=== PATIENT | female | born 1980 | race Caucasian/White ===

== ENCOUNTER 2020-12-22 11:09 | Observation (INO) ==
[2020-12-22 11:42] LABS: Bilirubin,Urine Negative (Negative); Blood,Urine Small (Negative); Clarity,Urine Turbid (Clear); Color,Urine Yellow (Yellow); Glucose,Urine (UA) Normal (Normal); Hyaline Casts,Urine Few per lpf (None Seen); Ketones,Urine 10 mg/dL (Negative); Leukocyte Esterase,Urine Small (Negative); Mucus,Urine Few per lpf (None-Few); Nitrite,Urine Negative (Negative); Protein,Urine 30 mg/dL (Neg-Trace); RBC,Urine 0-3 per hpf (0-3); Specific Gravity,Urine 1.021 (1.010-1.025); Squamous Epithelial Cell,Urine Moderate per hpf (None-Few); Urobilinogen,Urine Normal (Normal)
[2020-12-22 12:07] LABS: Basophils % 0.2 %; Eosinophils % 0.2 %; Hematocrit 39.5 % (35.3-44.9); Hemoglobin 13.9 g/dL (11.5-15.4); Immature Granulocytes % 0.4 % (0-4); Lymphocytes # 4.1 K/mcL (0.6-4.6); Lymphocytes % 36.2 %; Mean Corpuscular HGB Conc 35.2 g/dL (31.6-35.5); Mean Corpuscular Hemoglobin 32.5 pg (28.0-33.3); Mean Corpuscular Volume 92.3 fL (83.0-100.0); Mean Platelet Volume 11.3 fL (9.4-12.4); Monocytes # 0.7 K/mcL (0.0-1.3); Monocytes % 5.8 %; Neutrophils # 6.6 K/mcL (1.6-8.9); Platelet Count 242 K/mcL (140-400); Red Blood Count 4.28 M/mcL (3.82-4.97); Segmented Neutrophils % 57.2 %; White Blood Count 11.5 K/mcL (4.3-11.1)
[2020-12-22 12:20] LABS: Estimated Average Glucose 103 mg/dl; Hemoglobin A1C 5.2 %
[2020-12-22 12:40] LABS: Acetaminophen < 10 mcg/mL (10-20); BUN/Creatinine Ratio 19 (6-26); Blood Urea Nitrogen 15 mg/dL (6-20); Carbon Dioxide 27 mEq/L (23-29); Chloride 97 mEq/L (98-107); Chol/HDL Ratio 3.6 (0-4.9); Cholesterol 144 mg/dL (< 200); Ethanol < 10 mg/dL (Less than 10); Glucose 115 mg/dL (70-105); HDL Cholesterol 40 mg/dL (40-59); LDL Cholesterol,Calculated 81 mg/dL (< 100); Osmolality,Calculated 290 (280-300); Potassium 2.4 mEq/L (3.5-5.1); Salicylate < 2.5 mg/dL (15.0-30.0); Sodium 139 mEq/L (136-145); Triglycerides 115 mg/dL (< 150); eGFR For African Americans > 60 (> 60); eGFR For Non-African Americans > 60 (> 60)
[2020-12-22 12:43] LABS: Amphetamine Screen,Urine Negative ng/mL (Cutoff=1000); Barbiturate Screen,Urine Negative ng/mL (Cutoff=200); Benzodiazepines Screen,Urine Negative ng/mL (Cutoff=200); Cannabinoid Screen,Urine Positive ng/mL (Cutoff = 50); Cocaine Screen,Urine Negative ng/mL (Cutoff= 300); Opiate Screen,Urine Negative ng/mL (Cutoff=300); Phencyclidine Screen,Urine Negative ng/mL (Cutoff=25)
[2020-12-22] MEDS ORDERED: Naloxone 0.4 MG/ML INJ IVP PRN (15:00)
[2020-12-22 17:23] LABS: Magnesium 1.7 mg/dL (1.6-2.6)
[2020-12-23] MEDS ORDERED: Potassium Chloride Elixir 20 MEQ/15 ML UDC PO ONE (02:56)
[2020-12-23 07:51] LABS: Basophils % 0.1 %; Eosinophils % 0.5 %; Hematocrit 37.3 % (35.3-44.9); Hemoglobin 12.6 g/dL (11.5-15.4); Immature Granulocytes % 0.4 % (0-4); Lymphocytes # 2.9 K/mcL (0.6-4.6); Lymphocytes % 34.8 %; Mean Corpuscular HGB Conc 33.8 g/dL (31.6-35.5); Mean Corpuscular Volume 94.7 fL (83.0-100.0); Mean Platelet Volume 11.4 fL (9.4-12.4); Monocytes # 0.6 K/mcL (0.0-1.3); Monocytes % 6.7 %; Neutrophils # 4.8 K/mcL (1.6-8.9); Platelet Count 196 K/mcL (140-400); Red Blood Count 3.94 M/mcL (3.82-4.97); Red Cell Distribution Width 12.3 % (11.5-14.5); Segmented Neutrophils % 57.5 %; White Blood Count 8.3 K/mcL (4.3-11.1)
[2020-12-23 08:18] LABS: BUN/Creatinine Ratio 13 (6-26); Blood Urea Nitrogen 9 mg/dL (6-20); Calcium 9.6 mg/dL (8.6-10.3); Carbon Dioxide 27 mEq/L (23-29); Chloride 108 mEq/L (98-107); Glucose 112 mg/dL (70-105); Osmolality,Calculated 291 (280-300); Potassium 4.3 mEq/L (3.5-5.1); Sodium 141 mEq/L (136-145); eGFR For African Americans > 60 (> 60); eGFR For Non-African Americans > 60 (> 60)
[2020-12-23 15:01] VITALS: BP 112/70
== END 2020-12-23 18:09 | disposition other institution (70) ==
LOC: EMEROOARM 11:09 → 3BNU 11:09 → SUATTDRO 14:43 → 3BNU 15:16
PROVIDERS: ADMIT Internal Medicine; ATTEND Nurse Practitioner

== ENCOUNTER 2020-12-23 17:55 | Inpatient (IN) ==
[2020-12-23] MEDS ORDERED: MOM Conc 10 ML UD.LIQ PO PRN (19:00)
[2020-12-23] MEDS ORDERED: Mag Hydrox/Al Hydrox/Simeth 30 ML UDC PO PRN (19:00)
[2020-12-23] MEDS ORDERED: Haloperidol Lactate 5 MG/ML VIAL IM PRN (19:00)
[2020-12-23] MEDS ORDERED: Acetaminophen 325 MG TABLET PO PRN (19:00)
[2020-12-23] MEDS ORDERED: haloperidoL 5 MG TABLET PO PRN (19:00)
[2020-12-23] MEDS ORDERED: Nicotine 2 MG GUM BC PRN (19:00)
[2020-12-23] MEDS ORDERED: hydrOXYzine pamoate 25 MG CAPSULE PO PRN (19:00)
[2020-12-23] MEDS ORDERED: QUEtiapine Fumarate 25 MG TABLET PO PRN (19:00)
[2020-12-23] MEDS ORDERED: Ibuprofen 400 MG TABLET PO PRN (19:00)
[2020-12-23] MEDS ORDERED: *HR* Buprenorphine HCl 8 MG TAB.SUBL SL SCH (21:00)
[2020-12-23] MEDS: Gabapentin 100 MG CAPSULE PO SCH (21:09)
[2020-12-23] MEDS: *HR* Buprenorphine HCl 8 MG TAB.SUBL SL SCH (21:09)
[2020-12-24] MEDS ORDERED: Lurasidone 20 MG TABLET PO SCH (09:00)
[2020-12-24] MEDS: Gabapentin 100 MG CAPSULE PO SCH ×2 (09:01→20:42)
[2020-12-24] MEDS: Nicotine 21 MG PATCH.TD24 TD SCH (09:02)
[2020-12-24] MEDS: *HR* Buprenorphine HCl 8 MG TAB.SUBL SL SCH ×2 (09:02→20:42)
[2020-12-24] MEDS: Lurasidone 20 MG TABLET PO SCH (20:42)
[2020-12-25] MEDS: Lurasidone 20 MG TABLET PO SCH ×2 (08:46→21:05)
[2020-12-25] MEDS: Gabapentin 100 MG CAPSULE PO SCH ×2 (08:46→21:06)
[2020-12-25] MEDS: *HR* Buprenorphine HCl 8 MG TAB.SUBL SL SCH ×2 (08:47→21:05)
[2020-12-25] MEDS: Nicotine 21 MG PATCH.TD24 TD SCH (08:47)
[2020-12-26] MEDS: Gabapentin 100 MG CAPSULE PO SCH (08:50)
[2020-12-26] MEDS: Lurasidone 20 MG TABLET PO SCH ×2 (08:50→21:18)
[2020-12-26] MEDS: *HR* Buprenorphine HCl 8 MG TAB.SUBL SL SCH ×2 (08:51→21:20)
[2020-12-26] MEDS: Gabapentin 300 MG CAPSULE PO SCH ×2 (15:46→21:18)
[2020-12-27] MEDS: Gabapentin 300 MG CAPSULE PO SCH ×3 (08:52→21:03)
[2020-12-27] MEDS: Lurasidone 20 MG TABLET PO SCH ×2 (08:52→21:03)
[2020-12-27] MEDS: *HR* Buprenorphine HCl 8 MG TAB.SUBL SL SCH ×2 (08:52→21:03)
[2020-12-27] MEDS ORDERED: Lurasidone 20 MG TABLET PO SCH (18:00)
[2020-12-28] MEDS: Gabapentin 300 MG CAPSULE PO SCH ×3 (08:33→21:14)
[2020-12-28] MEDS: *HR* Buprenorphine HCl 8 MG TAB.SUBL SL SCH ×2 (08:33→21:14)
[2020-12-28] MEDS: Lurasidone 20 MG TABLET PO SCH (21:14)
[2020-12-29] MEDS: *HR* Buprenorphine HCl 8 MG TAB.SUBL SL SCH (08:38)
[2020-12-29] MEDS: Gabapentin 300 MG CAPSULE PO SCH (08:38)
[2020-12-29 09:07] VITALS: BP 123/77
== END 2020-12-29 13:50 | disposition home or self-care (01) | DRG 885 ==
LOC: 1ANU 17:55
PROVIDERS: ADMIT Psychiatry & Neurology Forensic Psychiatry; ATTEND Psychiatry & Neurology Forensic Psychiatry